=== PATIENT | male | born 1955 | race Caucasian/White ===

== ENCOUNTER 2016-11-17 18:27 | Emergency (ER) | payer OTHER ==
[~2016-11-17] VITALS: Ht 185.4 cm; Wt 96.1 kg
[~2016-11-17 18:27] MED LIST: GABAPENTIN600 MG PO; HYDROCHLOROTH12.5 M3 PO; LOSARTAN POTASS50 MG PO; MEDROL DOSEPAK4 MG PO; MELOXICAM15 MG PO; OMEPRAZOLE20 MG PO; PERCOCET 5/31 TABLET PO; TERAZOSIN HCL2 MG PO; VERAPAMIL HCL240 MG PO; VITAMIN D31000 UNIT PO
[2016-11-17 20:26] LABS: HEMATOCRIT 40.2 % (38.0-50.0); MCH 28.5 PG (29.0-34.0); MCHC 33.3 G/DL (30.0-36.0); MCV 85.5 FL (86-99); MEAN PLAT.VOLUME 9.6 uM^3 (9.0-12.4); PLATELET COUNT 265 K/uL (156-360); RBC DIS.WIDTH-CV 15.6 % (11.8-14.6); RBC DIS.WIDTH-SD 47.4 % (39-53); WHITE BLOOD COUNT 11.6 K/uL (4.1-10.2)
[2016-11-17 20:42] LABS: CHLORIDE 106 mEq/L (99-109); POTASSIUM 3.8 mEq/L (3.7-5.4); SODIUM 141 mEq/L (136-147)
[2016-11-17 20:43] LABS: GLUCOSE 86 mg/dL (70-99)
[2016-11-17 20:45] LABS: ANION GAP 11 MEQ/L (2-14)
[2016-11-17 20:47] LABS: GFR ESTIMATE (CALCULATED) > 59 mL/min/
[2016-11-17 20:48] LABS: UREA NITROGEN (BUN) 10 mg/dL (9-23)
[2016-11-17 20:54] LABS: TROP-I INTERPRETATION NEGATIVE; TROPONIN-I < 0.01 ng/mL (0.0-0.30)
[2016-11-17] MEDS ORDERED: PERCOCET 5/31 TABLET PO (21:19)
[2016-11-17 23:24] VITALS: BP 152/74
== END 2016-11-17 22:26 | disposition home or self-care (01) ==
LOC: EME 18:27
PROVIDERS: Physician Assistant Medical
PROC: 2W3FX1Z Immobilization of Left Hand using Splint (ICD-10-PCS; principal; 2016-11-17)
DX: R55 Syncope and collapse (principal); S62.395A Other fracture of fourth metacarpal bone, left hand, initial encounter for closed fracture; S00.81XA Abrasion of other part of head, initial encounter; S00.511A Abrasion of lip, initial encounter; S02.5XXA Fracture of tooth (traumatic), initial encounter for closed fracture; W19.XXXA Unspecified fall, initial encounter; Y92.009 Unspecified place in unspecified non-institutional (private) residence as the place of occurrence of the external cause; I10 Essential (primary) hypertension
CPT/HCPCS: 70450; 73110; 73130; 80048; 84484; 85027; 93005; 99281; 99284

== ENCOUNTER 2017-04-01 16:34 | Emergency (ER) | payer OTHER ==
[~2017-04-01] VITALS: Ht 182.9 cm; Wt 91.9 kg
[2017-04-01] MEDS ORDERED: MOTRIN800 MG PO ×2 (20:02→20:41)
[2017-04-01] MEDS ORDERED: AUGMENTIN875 MG PO ×2 (20:02→20:41)
[2017-04-01 20:41] LABS: HEMATOCRIT 39.2 % (38.0-50.0); MCH 29.4 PG (29.0-34.0); MCHC 33.2 G/DL (30.0-36.0); MCV 88.7 FL (86-99); MEAN PLAT.VOLUME 9.2 uM^3 (9.0-12.4); PLATELET COUNT 290 K/uL (156-360); RBC DIS.WIDTH-CV 13.2 % (11.8-14.6); RBC DIS.WIDTH-SD 43.4 % (39-53); RED BLOOD COUNT 4.42 M/uL (4.00-5.50); WHITE BLOOD COUNT 6.3 K/uL (4.1-10.2)
[2017-04-01 20:44] VITALS: BP 152/89
[2017-04-01 20:51] LABS: CHLORIDE 105 mEq/L (99-109); POTASSIUM 4.1 mEq/L (3.7-5.4); SODIUM 140 mEq/L (136-147)
[2017-04-01 20:53] LABS: GLUCOSE 88 mg/dL (70-99)
[2017-04-01 20:54] LABS: ANION GAP 11 MEQ/L (2-14)
[2017-04-01 20:55] LABS: TOTAL BILIRUBIN 0.9 mg/dL (0.0-1.0)
[2017-04-01 20:56] LABS: ALKALINE PHOSPHATASE 105 IU/L (3-129)
[2017-04-01 20:57] LABS: GFR ESTIMATE (CALCULATED) > 59 mL/min/
[2017-04-01 20:58] LABS: UREA NITROGEN (BUN) 12 mg/dL (9-23)
== END 2017-04-01 20:44 | disposition home or self-care (01) ==
LOC: EME 16:34
PROVIDERS: Nurse Practitioner Family
PROC: 3E0234Z Introduction of Serum, Toxoid and Vaccine into Muscle, Percutaneous Approach (ICD-10-PCS; principal; 2017-04-01)
DX: S61.256A Open bite of right little finger without damage to nail, initial encounter (principal); Y04.1XXA Assault by human bite, initial encounter; Z23 Encounter for immunization
CPT/HCPCS: 73140; 80053; 85027; 87070; 87075; 87205; 99281; 99283

== ENCOUNTER → 2017-12-30 | Outpatient (CLI) | payer OTHER ==
[~2017-12-30] MED LIST changes: +AUGMENTIN875 MG PO; +MOTRIN800 MG PO
== END | disposition home or self-care (01) ==
LOC: CDC 10:29
DX: Z01.810 Encounter for preprocedural cardiovascular examination (principal); M54.16 Radiculopathy, lumbar region; R00.1 Bradycardia, unspecified; I44.0 Atrioventricular block, first degree
CPT/HCPCS: 93000

== ENCOUNTER 2018-01-12 06:13 | Day surgery (SDC) | payer OTHER ==
[~2018-01-12] VITALS: Ht 185.4 cm; Wt 97.5 kg
[~2018-01-12 06:13] MED LIST changes: +MAVYRET 100-401 EACH PO; +ROXICODONE5 MG PO
[2018-01-12 07:50] VITALS: BP 161/87
[2018-01-12 12:05] VITALS: BP 138/78
[2018-01-12 13:15] VITALS: BP 143/70
== END 2018-01-12 13:26 | disposition home or self-care (01) ==
LOC: SDC 06:13
DX: M51.16 Intervertebral disc disorders with radiculopathy, lumbar region (principal); M47.26 Other spondylosis with radiculopathy, lumbar region; M48.061 Spinal stenosis, lumbar region without neurogenic claudication; I10 Essential (primary) hypertension; G62.9 Polyneuropathy, unspecified; R00.1 Bradycardia, unspecified
CPT/HCPCS: J0131; J0690; J1100; J1170; J2250; J2405; J2710; J7643; Q0175; S0020

== ENCOUNTER 2018-02-17 12:33 | Day surgery (SDC) | payer OTHER ==
[~2018-02-17] VITALS: Ht 182.9 cm; Wt 97.5 kg
[~2018-02-17 12:33] MED LIST changes: +TYLENOL WITH C1 EACH PO; +ULTRAM50 MG PO
[2018-02-17 12:55] VITALS: BP 148/80
[2018-02-17 13:15] VITALS: BP 148/80
[2018-02-17 17:55] VITALS: BP 184/88
[2018-02-17 18:40] VITALS: BP 178/92
[2018-02-17 19:17] VITALS: BP 176/89
== END 2018-02-17 19:22 | disposition home or self-care (01) ==
LOC: SDC 12:33
PROC: 0PSB04Z Reposition Left Clavicle with Internal Fixation Device, Open Approach (ICD-10-PCS; principal; 2018-02-17)
DX: S42.022A Displaced fracture of shaft of left clavicle, initial encounter for closed fracture (principal); W18.39XA Other fall on same level, initial encounter; Y93.89 Activity, other specified; Y92.007 Garden or yard of unspecified non-institutional (private) residence as the place of occurrence of the external cause; Y99.8 Other external cause status; I10 Essential (primary) hypertension; B19.20 Unspecified viral hepatitis C without hepatic coma; K20.9 Esophagitis, unspecified; Z82.49 Family history of ischemic heart disease and other diseases of the circulatory system; Z83.3 Family history of diabetes mellitus; Z82.61 Family history of arthritis
CPT/HCPCS: 73000; 76000; C1713; J0131; J0360; J0690; J1170; J2250; J2405; J2710; J3010; J7643; S0020

== ENCOUNTER 2018-04-25 17:47 | Emergency (ER) | payer OTHER ==
[~2018-04-25] VITALS: Ht 185.4 cm; Wt 97.0 kg
[2018-04-25 18:16] VITALS: BP 108/80
== END 2018-04-25 18:12 | disposition home or self-care (01) ==
LOC: EME 17:47
DX: F10.129 Alcohol abuse with intoxication, unspecified (principal); Y90.9 Presence of alcohol in blood, level not specified; Z85.828 Personal history of other malignant neoplasm of skin; Z86.69 Personal history of other diseases of the nervous system and sense organs
CPT/HCPCS: 99281; 99283